=== PATIENT | female | born 1940 | race Caucasian/White ===

== ENCOUNTER 2020-09-04 13:08 | Emergency (ER) | payer MEDICARE, BC ==
[2020-09-04] MEDS ORDERED: Acetaminophen 500 MG Tab PO ONE (13:20)
--- NOTE | 2020-09-04 13:31 | EDM.PDOC ---
ED HPI GENERAL MEDICAL PROBLEM - General Chief Complaint: Neck Problem Stated Complaint: FALL, RIGHT SHOULDER PAIN Time Seen by Provider: 09/04/20 13:10 Source of Information: Reports: Patient History Limitations: Reports: No Limitations - History of Present Illness INITIAL COMMENTS - FREE TEXT/NARRATIVE: 80 YO WF PRESENTS TO ER AFTER LOSING HER BALANCE COMING DOWN OFF OF A STEP STOOL. PT REPORTS SHE FELL OVER ONTO HER RIGHT SIDE. PT REPORTS IT WAS A GROUND LEVEL FALL. PT DENIES ANY HEAD OR NECK INJURIES OR LOSS OF CONSCIOUSNESS. PT STATES SHE HAS PAIN IN HER UPPER BACK AND TRAPEZIUS. PT DENIES CHEST OR RIB PAIN. PT DENIES ANY DIFFICULTY IN BREATHING. PT DENIES LOW BACK/PELVIS/HIP PAIN. PT WOULD LIKE SOME MILD PAIN RELIEVER AND STATES SHE USUALLY TAKES TYLENOL FOR PAIN. PT ABLE TO MOVE RIGHT ARM AND SHOULDER WITH MILD PAIN BUT HAS FULL ACTIVE RANGE OF MOTION. Onset: Today Location: Reports: Back, Upper Extremity, Right Quality: Reports: Ache Severity: Mild Improves with: Reports: Rest Worsens with: Reports: Movement Associated Symptoms: Reports: No Other Symptoms. 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 Denies: Headache, Numbness, Paresthesia, Difficulty Walking, Weakness, Gait Disturbance Psychiatric: Reports: No Symptoms Hematologic/Lymphatic: Reports: No Symptoms Immunologic: Reports: No Symptoms ED EXAM, UPPER BACK/NECK PAIN - Physical Exam Exam: See Below Exam Limited By: No Limitations General Appearance: Alert, WD/WN, No Apparent Distress Head Exam: Atraumatic, Normocephalic Neck Exam: Non-Tender, Full Range of Motion, Normal Alignment, Normal Inspection, Muscle Spasm, Paraspinous Muscle Tender. No: Stiff Neck Nexus Criteria: No: Posterior, Midline Cervical Tenderness, Evidence of Intoxication, Altered Level of Consciousness, Focal Neurological Deficit, Painful Distraction Injuries Cardiovascular/Respiratory: Regular Rate, Rhythm, No M/R/G, Normal Peripheral Pulses, No JVD, Normal Breath Sounds, No Respiratory Distress GI/Abdominal: Normal Bowel Sounds, Soft, Non-Tender, No Organomegaly, No Distention, No Abnormal Bruit, No Mass Back Exam: Full Range of Motion, Paraspinal Tenderness. 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 stitchdowns II-XII nml As Tested, No Motor/Sensory Deficits, Alert, Normal Mood/Affect, Oriented x 3 Psychiatric: Normal Affect, Normal Mood Skin Exam: Normal Color, Warm/Dry Lymphatic: No Adenopathy Course - Vital Signs Last Recorded V/S: Last Vital Signs Temp 98.7 F 09/04/20 13:18 Pulse 73 09/04/20 13:18 Resp 20 09/04/20 13:18 BP 159/81 H 09/04/20 13:18 Pulse Ox 99 09/04/20 13:18 - Orders/Labs/Meds Orders: Active Orders 24 hr Category Date Time Status traMADol [Ultram] Med 09/04/20 15:42 Once 400 mg PO ONETIME ONE Meds: Medications Discontinued Medications Generic Name Dose Route Start Last Admin Trade Name Ezeq PRN Reason Stop Dose Admin Acetaminophen 1,000 mg 09/04/20 13:20 09/04/20 14:28 Tylenol Extra Strength PO 09/04/20 13:21 1,000 mg ONETIME ONE Administration - Radiology Interpretation Free Text/Narrative:: RIGHT SHOULDER- NAD THORACIC SPINE- DJD RIGHT RIB WITH CHEST- RIGHT 3,4,5,6 FRACTURE LATERALLY WITHOUT PTX - Re-Assessments/Exams Free Text/Narrative Re-Assessment/Exam: 09/04/20 15:38 PAIN IMPROVED AFTER TYLENOL. PT DENIES SHORTNESS OF BREATH Departure - Departure Time of Disposition: 15:41 Disposition: Home, Self-Care 01 Condition: Good Clinical Impression: Ribs, multiple fractures Qualifiers: Encounter type: initial encounter Fracture type: closed Laterality: right Qualified Code(s): S22.41XA - Multiple fractures of ribs, right side, initial encounter for closed fracture Fall Qualifiers: Encounter type: initial encounter Qualified Code(s): W19.XXXA - Unspecified fall, initial encounter - Discharge Information Instructions: Rib Fracture Referrals: Hoda Dougherty PA-C [Primary Care Provider] - Forms: ED Department Discharge Additional Instructions: 1. DISCHARGE HOME 2. TYLENOL 1000MG EVERY 6 HOURS FOR PAIN NEEDED 3. ULTRAM 50MG EVERY 4 HOURS FOR PAIN NEEDED IF NO RELIEF FROM TYLENOL 4. MOTRIN 600MG EVERY 6 HOURS NEEDED FOR PAIN X 5 DAYS ONLY 5. FOLLOW UP IN CLINIC MID WEEK FOR RECHECK 6. INCENTIVE SPIROMETRY 10X/HOUR FOR LUNG EXPANSION 7. RETURN TO ER FOR FEVER/CHILLS, SHORTNESS OF BREATH OR WORSENING SYMPTOMS Sepsis Event Note (ED) - Evaluation Sepsis Screening Result: No Definite Risk - Focused Exam Vital Signs: Vital Signs Temp Pulse Resp BP Pulse Ox 09/04/20 13:18 98.7 F 73 20 159/81 H 99 - My Orders Last 24 Hours: My Active Orders 09/04/20 15:42 traMADol [Ultram] 400 mg PO ONETIME ONE - Assessment/Plan Last 24 Hours: My Active Orders 09/04/20 15:42 traMADol [Ultram] 400 mg PO ONETIME ONE Assessment:: 1. RIGHT 3,4,5,6 RIB FRACTURES 2. FALL Plan: 1. DISCHARGE HOME 2. TYLENOL 1000MG EVERY 6 HOURS FOR PAIN NEEDED 3. ULTRAM 50MG EVERY 4 HOURS FOR PAIN #8 NEEDED IF NO RELIEF FROM TYLENOL 4. MOTRIN 600MG EVERY 6 HOURS NEEDED FOR PAIN X 5 DAYS ONLY 5. FOLLOW UP IN CLINIC MID WEEK FOR RECHECK 6. INCENTIVE SPIROMETRY 10X/HOUR FOR LUNG EXPANSION 7. RETURN TO ER FOR FEVER/CHILLS, SHORTNESS OF BREATH OR WORSENING SYMPTOMS
--- NOTE | 2020-09-04 13:59 | CR ---
[id number] RAD/RAD Thoracic Spine 2V EXAM: RAD Thoracic Spine 2V INDICATION: Back pain. COMPARISON: No previous similar exam is available. FINDINGS: MULTILEVEL MODERATE DEGENERATIVE CHANGES ARE SEEN THERE IS NO FRACTURE OR SUBLUXATION IMPRESSION: DEGENERATIVE CHANGES Enrike Richard MD 09/04/20 [id number] Thank you for allowing us to participate in the care of your patient.
--- NOTE | 2020-09-04 14:00 | CR ---
[id number] RAD/RAD Shoulder Right 2V Min EXAM: RAD Shoulder Right 2V Min CLINICAL DATA: TRAUMA COMPARISON: No previous similar exam is available. FINDINGS: Recent right side fourth, fifth, and sixth rib fractures are seen No other abnormality is identified IMPRESSION: RECENT RIGHT RIB FRACTURES Enrike Richard MD 09/04/20 [id number] Thank you for allowing us to participate in the care of your patient.
--- NOTE | 2020-09-04 15:22 | CR ---
[id number] RAD/RAD Ribs Right W PA Chest Exam: RAD Ribs Right W PA Chest Clinical Data: TRAUMA COMPARISON: NO PREVIOUS SIMILAR EXAM IS AVAILABLE FINDINGS: There are fractures of at least the right third, fourth, fifth, and sixth ribs laterally There is no pneumothorax There are old left rib fractures The cardiomediastinal contour is enlarged IMPRESSION: MULTIPLE NEW RIGHT AND OLD LEFT RIB FRACTURES NO PNEUMOTHORAX Enrike Richard MD 09/04/20 [id number] Thank you for allowing us to participate in the care of your patient.
[2020-09-04] MEDS ORDERED: traMADol 50 MG Tab PO ONE (15:42)
== END 2020-09-04 16:00 | disposition home or self-care (01) ==
LOC: KA.ED 13:08
DX: S22.41XA Multiple fractures of ribs, right side, initial encounter for closed fracture (principal); M25.511 Pain in right shoulder; W08.XXXA Fall from other furniture, initial encounter
CPT/HCPCS: 71101-RT; 72070; 73030-RT; 99283; 99284-25; A9270-GY

== ENCOUNTER 2022-12-09 19:06 | Emergency (ER) | payer BC, MEDICARE ==
[2022-12-09] MEDS ORDERED: Sodium Chloride 0.9% 10 ML Syringe FLUSH PRN (19:13)
[2022-12-09] MEDS ORDERED: Sodium Chloride 0.9% 500 ML IV SCH (19:15)
[2022-12-09] MEDS ORDERED: Acetaminophen 500 MG Tab PO ONE (19:22)
[2022-12-09] MEDS ORDERED: Acetaminophen 500 MG Tab ONE (19:22)
[2022-12-09 19:41] LABS: BASOPHILS ABSOLUTE AUTO 0.05 10^3/uL (0.00-0.10); BASOPHILS PERCENT AUTO 0.5 % (0.0-1.0); EOSINOPHILS ABSOLUTE AUTO 0.04 10^3/uL (0.10-0.30); EOSINOPHILS PERCENT AUTO 0.4 % (1.0-3.0); HEMATOCRIT 41.7 % (37.0-47.0); HEMOGLOBIN 13.8 g/dL (12.0-16.0); IMMATURE GRAN ABSOLUTE AUTO 0.02 10^3/uL (0.00-0.50); IMMATURE GRAN PERCENT AUTO 0.2 % (0.0-5.0); LYMPHOCYTES ABSOLUTE AUTO 0.73 10^3/uL (1.00-4.00); LYMPHOCYTES PERCENT AUTO 7.1 % (20.0-40.0); MEAN CORPUSCULAR HEMOGLOBIN 29.6 pg (27.0-31.0); MEAN CORPUSCULAR HGB CONC 33.1 g/dL (32.0-36.0); MEAN CORPUSCULAR VOLUME 89.3 fL (82.0-92.0); MEAN PLATELET VOLUME 9.5 fL (7.4-10.4); MONOCYTES ABSOLUTE AUTO 0.83 10^3/uL (0.10-0.80); MONOCYTES PERCENT AUTO 8.1 % (2.0-8.0); NEUTROPHILS ABSOLUTE AUTO 8.61 10^3/uL (2.50-7.00); NEUTROPHILS PERCENT AUTO 83.7 % (50.0-70.0); PLATELET COUNT,PLT 170 10^3/uL (150-400); RED BLOOD CELL COUNT 4.67 10^6/uL (3.80-5.50); RED CELL DISTRIBUTION WIDTH 13.2 % (11.5-14.5); WHITE BLOOD CELL COUNT,WBC 10.28 10^3/uL (5.00-10.00)
[2022-12-09 19:49] LABS: APPEARANCE,URINE CLOUDY (CLEAR); BILIRUBIN,URINE NEGATIVE (NEGATIVE); COLOR,URINE YELLOW (YELLOW); GLUCOSE,URINE NEGATIVE (NEGATIVE); KETONES,URINE NEGATIVE (NEGATIVE); LEUKOCYTE ESTERASE,URINE TRACE (NEGATIVE); NITRITE,URINE POSITIVE (NEGATIVE); OCCULT BLOOD,URINE TRACE-INTACT (NEGATIVE); PROTEIN,URINE NEGATIVE (NEGATIVE); UROBILINOGEN,URINE 0.2 E.U./dL (0.2-1.0)
[2022-12-09 19:57] LABS: ALBUMIN 3.47 g/dL (3.40-5.00); ANION GAP 14.9 mmol/L (5-15); BILIRUBIN TOTAL 1.2 mg/dL (0.2-1.0); CALCIUM 8.2 mg/dL (8.7-10.3); CARBON DIOXIDE,CO2 24.6 mmol/L (21.0-32.0); CREATININE 0.54 mg/dL (0.51-1.17); EST CRCL DRUG DOSING (CG) 55.7 mL/min; POTASSIUM,K 3.5 mmol/L (3.5-5.1); PROTEIN TOTAL,TP 6.7 g/dL (6.4-8.2)
[2022-12-09 19:58] LABS: EPITHELIAL CELLS,URINE RARE /LPF; RBC,URINE 0-5 /HPF (0-5)
[2022-12-09 19:59] LABS: BACTERIA,URINE FEW /HPF (NONE TO FEW); YEAST,URINE OCCASIONAL /HPF (NEGATIVE)
[2022-12-09 20:01] LABS: LACTIC ACID 0.9 mmol/L (0.4-2.0)
[2022-12-09] MEDS ORDERED: cefTRIAXone 1 GM Vial IVPUSH ONE (20:01)
[2022-12-09] MEDS ORDERED: Cefdinir 300 MG Cap PO ONE (20:02)
[2022-12-09 20:20] LABS: INFLUENZA A NAA NEGATIVE (NEGATIVE); INFLUENZA B NAA NEGATIVE (NEGATIVE)
[2022-12-09 20:22] LABS: CORONAVIRUS COVID-19 NAA NEGATIVE (NEGATIVE)
== END 2022-12-09 20:20 | disposition home or self-care (01) ==
LOC: KA.ED 19:06
DX: N30.00 Acute cystitis without hematuria (principal); Z20.822 Contact with and (suspected) exposure to COVID-19
CPT/HCPCS: 0240U; 36415; 71045; 80053; 81001; 83605; 85025; 96374; 99283; 99285-25; A9270-GY; J0696; J7040